=== PATIENT | male | born 1985 | race Caucasian/White ===

== ENCOUNTER 2021-05-15 08:19 | Emergency (ER) | payer OTHER ==
[2021-05-15] MEDS ORDERED: KETOROLAC TROMETHAMINE 60 MG/2 ML VIAL IM ONE (08:40)
[2021-05-15 08:47] VITALS: BP 108/73; PULSE 87; TEMP 97.5; BMI 26.6
[2021-05-15] MEDS ORDERED: KETOROLAC TROMETHAMINE 30 MG/1 ML VIAL ONE (09:08)
== END 2021-05-15 09:15 | disposition home or self-care (01) ==
LOC: JER 08:19 → JERFT 08:19
PROC: 3E023GC Introduction of Other Therapeutic Substance into Muscle, Percutaneous Approach (ICD-10-PCS; principal; 2021-05-15)
DX: S93.401A Sprain of unspecified ligament of right ankle, initial encounter (principal); X50.9XXA Other and unspecified overexertion or strenuous movements or postures, initial encounter
CPT/HCPCS: 73590-TC-RT-FY; 73610-TC-RT-FY; 73630-TC-RT-FY; 99284-25

== ENCOUNTER 2024-07-05 11:57 | Emergency (ER) | payer OTHER ==
[2024-07-05 12:13] VITALS: BP 142/77; PULSE 96; RESP 18; TEMP 98.1; BMI 27.3
[2024-07-05] MEDS ORDERED: KETOROLAC TROMETHAMINE 30 MG/1 ML VIAL ONE (13:05)
[2024-07-05] MEDS ORDERED: LIDOCAINE 4% PATCH TP ONE (13:05)
[2024-07-05] MEDS: LIDOCAINE 4% PATCH TP ONE (13:10)
[2024-07-05] MEDS: KETOROLAC TROMETHAMINE 30 MG/1 ML VIAL IM ONE (13:11)
[2024-07-05 14:32] LABS: HIV INTERPRETATION NEGATIVE (NEGATIVE)
[2024-07-05 14:33] LABS: HCV DIAGNOSTIC IN-HOUSE W/RFLX NON-REACTIVE (NONREACTIVE)
== END 2024-07-05 13:16 | disposition home or self-care (01) ==
LOC: JERFT 11:57
PROC: 3E0233Z Introduction of Anti-inflammatory into Muscle, Percutaneous Approach (ICD-10-PCS; principal; 2024-07-05)
DX: M54.50 Low back pain, unspecified (principal); W10.8XXA Fall (on) (from) other stairs and steps, initial encounter; Y92.009 Unspecified place in unspecified non-institutional (private) residence as the place of occurrence of the external cause
CPT/HCPCS: 36415; 72100-TC-FY; 86803; 87389; 99284-25